=== PATIENT | female | born 1950 | race Caucasian/White ===

== ENCOUNTER → 2019-02-27 | Outpatient (CLI) | payer MEDICARE ==
[~2019-02-27] MED LIST: ASPI-496 PO; DIAZ10TA4 PO; ESTR1TAB15 PO; FURO20TA3 PO; LEVO100T5 PO; LISI2.5T PO; MULT1TAB60 PO; OMEP40CA6 PO; Potassium PO; RANI300C PO; RED600CA2 PO; SENN1TAB67 PO
[2019-02-27 11:49] LABS: INTERNATIONAL NORMALIZED RATIO 0.95 (0.93-1.1)
[2019-02-27 11:55] LABS: ALBUMIN 3.9 g/dL (3.4-5.0); ANION GAP 6 mmol/L (5-15); CALCIUM 8.6 mg/dL (8.5-10.1); CHLORIDE 110 mmol/L (98-107)
[2019-02-27 12:00] LABS: ALANINE AMINOTRANSFERASE 24 U/L (12-78); ALKALINE PHOSPHATASE 109 U/L (45-117); BILIRUBIN,TOTAL 0.3 mg/dL (0.2-1.0); CREATININE 1.23 mg/dL (0.55-1.02); TOTAL PROTEIN 7.2 g/dL (6.4-8.2)
[2019-02-27 12:05] LABS: BASOPHILS # (AUTO) 0.03 x10^3/uL (0-0.1); BASOPHILS % (AUTO) 1 % (0-1); EOSINOPHILS # (AUTO) 0.23 x10^3/uL (0-0.4); EOSINOPHILS % (AUTO) 5 % (1-7); LYMPHOCYTES # (AUTO) 2.21 x10^3/uL (1-3.4); LYMPHOCYTES % (AUTO) 44 % (22-44); MD NO; MEAN CORPUSCULAR HEMOGLOBIN 30.2 pg (27.0-34.8); MEAN CORPUSCULAR HGB CONC 33.1 g/dL (32.4-35.8); MEAN CORPUSCULAR VOLUME 91.1 fL (80-100); MEAN PLATELET VOLUME 9.4 fL (7.4-10.4); MONOCYTES # (AUTO) 0.39 x10^3/uL (0.2-0.8); MONOCYTES % (AUTO) 8 % (2-9); NEUTROPHILS # (AUTO) 2.13 x10^3/uL (1.8-6.8); NEUTROPHILS % (AUTO) 43 % (42-75); PLATELET COUNT 395 x10^3/uL (130-400); RED BLOOD COUNT 4.53 x10^6/uL (3.82-5.3)
== END | disposition home or self-care (01) ==
LOC: STAR 10:22
PROVIDERS: ATTEND Specialist
DX: Z01.818 Encounter for other preprocedural examination (principal); N90.1 Moderate vulvar dysplasia
CPT/HCPCS: 36415; 71046; 80053; 85025; 85610; 85730; 93005

== ENCOUNTER 2019-03-09 07:00 | Day surgery (SDC) | payer MEDICARE ==
[~2019-03-09] VITALS: Ht 162.6 cm; Wt 94.0 kg
[2019-03-09] MEDS ORDERED: BUPIVACAINE/PF 0.25% ONE (07:56)
[2019-03-09] MEDS ORDERED: EPINEPHRINE 1 MG/ML, 1ML ONE (07:56)
[2019-03-09] MEDS ORDERED: LIDOCAINE-MPF 1%, 2ML INFIL ONE (08:00)
[2019-03-09] MEDS ORDERED: LACTATED RINGERS 1,000 ML IV SCH (08:00)
[2019-03-09] MEDS ORDERED: MIDAZOLAM 1 MG/ML, 2ML ONE (10:13)
[2019-03-09] MEDS ORDERED: PROMETHAZINE 25 MG/ML, 1ML IV PRN (11:00)
[2019-03-09] MEDS ORDERED: KETOROLAC 30 MG/1 ML IV PRN (11:00)
[2019-03-09] MEDS ORDERED: MEPERIDINE/PF 25MG/0.5ML IVPush PRN (11:00)
[2019-03-09] MEDS ORDERED: ONDANSETRON 2MG/ML, 2ML IVPush PRN (11:00)
[2019-03-09] MEDS ORDERED: OXYcodone 5 MG/5 ML ORAL.SOL UDC PO PRN (11:00)
[2019-03-09] MEDS ORDERED: ALBUTEROL SULFATE 2.5 MG/3 ML NPPB PRN (11:00)
[2019-03-09] MEDS ORDERED: FENTANYL PF 100 MCG/2ML IV PRN (11:00)
[2019-03-09] MEDS ORDERED: LABETALOL 5MG/ML, 20ML IV PRN (11:00)
[2019-03-09] MEDS ORDERED: hydrALAzine 20 MG/ML, 1ML IV PRN (11:00)
[2019-03-09] MEDS ORDERED: HYDROmorphone 1 MG/ML, 1ML INJ IV PRN (11:00)
[2019-03-09] MEDS ORDERED: METOCLOPRAMIDE 5 MG/ML, 2ML IV PRN (11:00)
[2019-03-09] MEDS ORDERED: BUPIVACAINE/PF-EPI 0.25% 1:200K INFIL ONE (11:10)
[2019-03-09] MEDS ORDERED: FENTANYL PF 100 MCG/2ML ONE (11:15)
[2019-03-09] MEDS ORDERED: OXYcodone 5 MG/5 ML ORAL.SOL UDC ONE (11:37)
[2019-03-09] MEDS ORDERED: ONDANSETRON 2MG/ML, 2ML ONE (16:42)
[2019-03-09] MEDS ORDERED: CEFAZOLIN 1,000 MG ONE (16:42)
[2019-03-09] MEDS ORDERED: SUCCINYLCHOLINE 20 MG/ML, 10ML ONE (16:42)
[2019-03-09] MEDS ORDERED: PROPOFOL 10 MG/ML, 20ML ONE (16:42)
[2019-03-09] MEDS ORDERED: DEXAMETHASONE 4 MG/ML, 1ML ONE (16:42)
== END 2019-03-09 13:35 | disposition home or self-care (01) ==
LOC: OUT 07:00
PROVIDERS: ATTEND Specialist
DX: D07.1 Carcinoma in situ of vulva (principal); K21.9 Gastro-esophageal reflux disease without esophagitis; E03.9 Hypothyroidism, unspecified; Z90.710 Acquired absence of both cervix and uterus; Z79.82 Long term (current) use of aspirin; Z88.1 Allergy status to other antibiotic agents; Z88.8 Allergy status to other drugs, medicaments and biological substances; Z98.42 Cataract extraction status, left eye; Z98.41 Cataract extraction status, right eye; Z98.890 Other specified postprocedural states; Z87.891 Personal history of nicotine dependence; Z96.1 Presence of intraocular lens
CPT/HCPCS: 56620; 88305; J0171; J0330; J0690; J1100; J2250; J2405; J2704; J3010; J3490; J7120